=== PATIENT | male | born 1935 | race Caucasian/White ===

== ENCOUNTER 2017-07-19 07:58 | Inpatient (IN) | payer OTHER ==
[~2017-07-19] VITALS: Ht 185.4 cm; Wt 61.7 kg
[2017-07-19 07:59] VITALS: BP 83/49
[2017-07-19] MEDS ORDERED: METFORMIN500 MG PO (08:20)
[2017-07-19] MEDS ORDERED: LISINOPRIL5 MG PO (08:20)
[2017-07-19 08:25] LABS: BASO % 0.5 % (0.0-1.0); EOS # 0.1 10*3/uL (0.0-0.4); EOS % 1.4 % (1.0-4.0); HEMATOCRIT 38.3 % (42.0-52.0); HEMOGLOBIN 12.3 g/dl (14.0-18.0); LYMPH % 22.8 % (27.0-41.0); MEAN CELL VOLUME 101.6 fl (80.0-94.0); MEAN CORPUSCULAR HGB 32.6 pg (27.0-31.0); MEAN CORPUSCULAR HGB CONC 32.1 g/dl (33.0-37.0); MEAN PLATELET VOLUME 10.3 fl (9.6-12.3); MONO # 0.5 10*3/uL (0.1-1.0); MONO % 6.2 % (3.0-9.0); NEUT % 68.8 % (47.0-73.0); PLATELET COUNT AUTOMATED 424 10*3/uL (130-400); RED BLOOD COUNT 3.77 10*6/uL (4.50-5.90); RED CELL DISTRI WIDTH 12.4 % (0-14.5); WHITE BLOOD COUNT 8.7 10*3/uL (4.8-10.8)
[2017-07-19 08:44] LABS: ALBUMIN 3.1 gm/dl (3.1-4.5); ALKALINE PHOSPHATASE 55 U/L (45-117); BUN 30 mg/dl (7-24); CHLORIDE 99 mmol/L (98-107); CREATININE 1.43 mg/dL (0.70-1.30); POTASSIUM 4.6 mmol/L (3.5-5.1); SGOT/AST 10 IU/L (3-35); SGPT/ALT 12 U/L (12-78); SODIUM 138 mmol/L (136-145); TOTAL PROTEIN 7.9 gm/dL (6.4-8.2)
[2017-07-19 08:48] VITALS: BP 104/67
[2017-07-19 08:55] LABS: TROPONIN I < 0.015 ng/ml (<0.045)
[2017-07-19 10:45] VITALS: BP 105/81
[2017-07-19 12:00] VITALS: BP 125/58
[2017-07-19 16:00] VITALS: BP 130/85
[2017-07-19 20:00] VITALS: BP 98/74
[2017-07-20] VITALS: BP 98/74
[2017-07-20 07:10] LABS: BASO % 0.4 % (0.0-1.0); EOS # 0.2 10*3/uL (0.0-0.4); EOS % 2.3 % (1.0-4.0); HEMATOCRIT 40.4 % (42.0-52.0); HEMOGLOBIN 12.8 g/dl (14.0-18.0); LYMPH # 1.6 10*3/uL (1.3-4.4); LYMPH % 23.4 % (27.0-41.0); MEAN CELL VOLUME 100.7 fl (80.0-94.0); MEAN CORPUSCULAR HGB 31.9 pg (27.0-31.0); MEAN CORPUSCULAR HGB CONC 31.7 g/dl (33.0-37.0); MEAN PLATELET VOLUME 10.4 fl (9.6-12.3); MONO # 0.4 10*3/uL (0.1-1.0); MONO % 6.2 % (3.0-9.0); NEUT # 4.7 10*3/uL (2.3-7.9); NEUT % 67.3 % (47.0-73.0); PLATELET COUNT AUTOMATED 386 10*3/uL (130-400); RED BLOOD COUNT 4.01 10*6/uL (4.50-5.90); RED CELL DISTRI WIDTH 12.3 % (0-14.5)
[2017-07-20 07:26] LABS: ACT PARTIAL THROMBO TIME 28.7 SECONDS (20.8-31.5)
[2017-07-20 07:42] LABS: ALBUMIN 3.1 gm/dl (3.1-4.5); BUN 27 mg/dl (7-24); CHLORIDE 99 mmol/L (98-107); SODIUM 137 mmol/L (136-145)
[2017-07-20 07:50] LABS: ALKALINE PHOSPHATASE 59 U/L (45-117); CHOLESTEROL 164 mg/dL (<200); CREATININE 0.98 mg/dL (0.70-1.30); FREE T4 1.42 ng/dl (0.76-1.46); HDL CHOLESTEROL 43 mg/dl (40-60); LDL CHOLESTEROL 94 mg/dL (9-159); PHOSPHOROUS 2.4 mg/dL (2.5-4.9); SGOT/AST 13 IU/L (3-35); SGPT/ALT 13 U/L (12-78); TOTAL PROTEIN 8.2 gm/dL (6.4-8.2); TRIGLYCERIDES 137 mg/dl (<150); VLDL CHOLESTEROL 27 mg/dL (6-40)
[2017-07-20 08:00] VITALS: BP 160/80
[2017-07-20 08:03] LABS: VITAMIN D, 25-HYDROXY 25.4 ng/mL (30-100)
[2017-07-20 08:19] LABS: POTASSIUM 3.5 mmol/L (3.5-5.1)
[2017-07-20 12:00] VITALS: BP 117/88
== END 2017-07-20 15:07 | disposition home or self-care (01) | DRG 312 ==
LOC: ED 07:58 → EDHOLD 09:30 → 5E 09:30
PROVIDERS: Emergency Medicine; Family Medicine
DX: I95.1 Orthostatic hypotension (principal); E11.65 Type 2 diabetes mellitus with hyperglycemia; D53.9 Nutritional anemia, unspecified; I47.1 Supraventricular tachycardia; Z68.1 Body mass index [BMI] 19.9 or less, adult; D47.3 Essential (hemorrhagic) thrombocythemia; J44.9 Chronic obstructive pulmonary disease, unspecified; D72.810 Lymphocytopenia; I10 Essential (primary) hypertension; R06.82 Tachypnea, not elsewhere classified; R63.6 Underweight; E78.5 Hyperlipidemia, unspecified; Z91.14 Patient's other noncompliance with medication regimen; Z79.899 Other long term (current) drug therapy; Z87.891 Personal history of nicotine dependence; Z82.49 Family history of ischemic heart disease and other diseases of the circulatory system; Z80.8 Family history of malignant neoplasm of other organs or systems

== ENCOUNTER 2017-08-02 11:46 | Inpatient (IN) | payer OTHER ==
[~2017-08-02] VITALS: Ht 185.4 cm; Wt 64.9 kg
[2017-08-02 11:46] VITALS: BP 112/57
[~2017-08-02 11:46] MED LIST: LISINOPRIL5 MG PO; METFORMIN500 MG PO
[2017-08-02] MEDS ORDERED: METFORMIN HCL500 MG PO (11:53)
[2017-08-02 13:08] LABS: HEMATOCRIT 36.3 % (42.0-52.0); HEMOGLOBIN 11.5 g/dl (14.0-18.0); MEAN CORPUSCULAR HGB 32.3 pg (27.0-31.0); MEAN CORPUSCULAR HGB CONC 31.7 g/dl (33.0-37.0); MEAN PLATELET VOLUME 10.7 fl (9.6-12.3); PLATELET COUNT AUTOMATED 263 10*3/uL (130-400); RED BLOOD COUNT 3.56 10*6/uL (4.50-5.90); RED CELL DISTRI WIDTH 13.3 % (0-14.5); WHITE BLOOD COUNT 12.9 10*3/uL (4.8-10.8)
[2017-08-02 13:20] LABS: ACT PARTIAL THROMBO TIME 27.2 SECONDS (20.8-31.5)
[2017-08-02 13:20] LABS: BILIRUBIN 1+ (NEGATIVE); BLOOD NEGATIVE (NEGATIVE); CLARITY SL CLOUDY (CLEAR); COLOR YELLOW (YELLOW); GLUCOSE TRACE (NEGATIVE); KETONE 1+ (NEGATIVE); LEUKO ESTERASE NEGATIVE (NEGATIVE); NITRITE NEGATIVE (NEGATIVE); PH 6.5 (5.0-9.0)
[2017-08-02 13:25] LABS: ALBUMIN 3.4 gm/dl (3.1-4.5); BUN 28 mg/dl (7-24); CHLORIDE 101 mmol/L (98-107); CREATININE 1.11 mg/dL (0.70-1.30); LIPASE 85 U/L (73-393); POTASSIUM 4.2 mmol/L (3.5-5.1); SGOT/AST 10 IU/L (3-35); SGPT/ALT 13 U/L (12-78); SODIUM 137 mmol/L (136-145)
[2017-08-02 13:26] LABS: ALKALINE PHOSPHATASE 52 U/L (45-117); TOTAL PROTEIN 7.6 gm/dL (6.4-8.2)
[2017-08-02 13:28] LABS: TROPONIN I < 0.015 ng/ml (<0.045)
[2017-08-02 13:38] LABS: PLATELET SUFFICIENCY NORMAL (NORMAL); TOTAL CELLS COUNTED 100 #CELLS
[2017-08-02 13:40] LABS: BACTERIA TRACE; EPITHELIAL CELLS 0-2; MUCOUS 1+; RBC 0-2 rbc/hpf (0-2); WBC 0-2 wbc/hpf (0-5)
[2017-08-02 14:06] VITALS: BP 155/72
[2017-08-02 20:00] VITALS: BP 135/72
[2017-08-03] VITALS: BP 125/74
[2017-08-03 06:41] LABS: BASO % 0.3 % (0.0-1.0); EOS % 0.2 % (1.0-4.0); HEMATOCRIT 35.3 % (42.0-52.0); HEMOGLOBIN 11.1 g/dl (14.0-18.0); LYMPH # 0.9 10*3/uL (1.3-4.4); MEAN CORPUSCULAR HGB 32.1 pg (27.0-31.0); MEAN CORPUSCULAR HGB CONC 31.4 g/dl (33.0-37.0); MEAN PLATELET VOLUME 10.7 fl (9.6-12.3); MONO # 0.5 10*3/uL (0.1-1.0); MONO % 5.6 % (3.0-9.0); NEUT % 84.6 % (47.0-73.0); PLATELET COUNT AUTOMATED 220 10*3/uL (130-400); RED BLOOD COUNT 3.46 10*6/uL (4.50-5.90); RED CELL DISTRI WIDTH 13.4 % (0-14.5); WHITE BLOOD COUNT 9.5 10*3/uL (4.8-10.8)
[2017-08-03 06:46] LABS: ACT PARTIAL THROMBO TIME 33.6 SECONDS (20.8-31.5); INTERNATIONAL NORM RATIO 1.1 (2.0-3.5)
[2017-08-03 06:56] LABS: ALBUMIN 3.1 gm/dl (3.1-4.5); ALKALINE PHOSPHATASE 50 U/L (45-117); BUN 20 mg/dl (7-24); CHLORIDE 103 mmol/L (98-107); CREATININE 0.99 mg/dL (0.70-1.30); PHOSPHOROUS 2.4 mg/dL (2.5-4.9); POTASSIUM 3.9 mmol/L (3.5-5.1); SGOT/AST 10 IU/L (3-35); SGPT/ALT 11 U/L (12-78); SODIUM 139 mmol/L (136-145); TOTAL PROTEIN 7.3 gm/dL (6.4-8.2)
[2017-08-03 08:10] VITALS: BP 180/78
[2017-08-03] MEDS ORDERED: TOPROL XL50 M1 PO (08:13)
[2017-08-03 11:32] VITALS: BP 160/72
[2017-08-03 16:00] VITALS: BP 151/61
[2017-08-03 20:00] VITALS: BP 133/68
[2017-08-04] VITALS: BP 155/63
[2017-08-04 06:30] LABS: BASO % 0.3 % (0.0-1.0); EOS % 0.5 % (1.0-4.0); HEMATOCRIT 30.4 % (42.0-52.0); HEMOGLOBIN 9.6 g/dl (14.0-18.0); LYMPH # 0.9 10*3/uL (1.3-4.4); LYMPH % 11.9 % (27.0-41.0); MEAN CELL VOLUME 102.4 fl (80.0-94.0); MEAN CORPUSCULAR HGB 32.3 pg (27.0-31.0); MEAN CORPUSCULAR HGB CONC 31.6 g/dl (33.0-37.0); MEAN PLATELET VOLUME 11.2 fl (9.6-12.3); MONO # 0.7 10*3/uL (0.1-1.0); MONO % 9.6 % (3.0-9.0); NEUT # 5.7 10*3/uL (2.3-7.9); NEUT % 77.4 % (47.0-73.0); PLATELET COUNT AUTOMATED 218 10*3/uL (130-400); RED BLOOD COUNT 2.97 10*6/uL (4.50-5.90); RED CELL DISTRI WIDTH 13.6 % (0-14.5); WHITE BLOOD COUNT 7.4 10*3/uL (4.8-10.8)
[2017-08-04 08:00] VITALS: BP 138/56
[2017-08-04 12:00] VITALS: BP 142/77
[2017-08-04 16:00] VITALS: BP 173/67
[2017-08-04 20:00] VITALS: BP 159/63
[2017-08-05] VITALS: BP 125/53; BP 174/64
[2017-08-05 07:58] LABS: BASO % 0.5 % (0.0-1.0); EOS # 0.2 10*3/uL (0.0-0.4); EOS % 3.4 % (1.0-4.0); HEMOGLOBIN 9.3 g/dl (14.0-18.0); LYMPH # 1.1 10*3/uL (1.3-4.4); LYMPH % 18.6 % (27.0-41.0); MEAN CORPUSCULAR HGB 32.4 pg (27.0-31.0); MEAN CORPUSCULAR HGB CONC 32.1 g/dl (33.0-37.0); MONO # 0.5 10*3/uL (0.1-1.0); MONO % 7.8 % (3.0-9.0); NEUT # 4.1 10*3/uL (2.3-7.9); NEUT % 69.4 % (47.0-73.0); PLATELET COUNT AUTOMATED 205 10*3/uL (130-400); RED BLOOD COUNT 2.87 10*6/uL (4.50-5.90); RED CELL DISTRI WIDTH 13.6 % (0-14.5); WHITE BLOOD COUNT 5.9 10*3/uL (4.8-10.8)
[2017-08-05 08:00] VITALS: BP 176/79
[2017-08-05 08:10] LABS: BUN 13 mg/dl (7-24); CHLORIDE 106 mmol/L (98-107); CREATININE 1.02 mg/dL (0.70-1.30); PHOSPHOROUS 2.4 mg/dL (2.5-4.9); POTASSIUM 3.5 mmol/L (3.5-5.1); SODIUM 141 mmol/L (136-145)
[2017-08-05] MEDS ORDERED: LEVAQUIN500 M2 PO (11:11)
[2017-08-05] MEDS ORDERED: TOPROL XL50 M1 PO (11:14)
[2017-08-05] MEDS ORDERED: MUCINEX ER600 MG PO (11:14)
== END 2017-08-05 12:17 | disposition home or self-care (01) | DRG 871 ==
LOC: ED 11:46 → 4E 14:15 → EDHOLD 14:15 → 4E 14:29
PROVIDERS: Emergency Medicine; Family Medicine; Internal Medicine Nephrology
DX: A41.9 Sepsis, unspecified organism (principal); G93.41 Metabolic encephalopathy; J90 Pleural effusion, not elsewhere classified; E44.0 Moderate protein-calorie malnutrition; J18.1 Lobar pneumonia, unspecified organism; E11.65 Type 2 diabetes mellitus with hyperglycemia; J44.0 Chronic obstructive pulmonary disease with (acute) lower respiratory infection; I47.1 Supraventricular tachycardia; R65.20 Severe sepsis without septic shock; E83.39 Other disorders of phosphorus metabolism; D53.9 Nutritional anemia, unspecified; E83.41 Hypermagnesemia; B35.1 Tinea unguium; I10 Essential (primary) hypertension; Y95 Nosocomial condition; Z79.4 Long term (current) use of insulin; Z79.84 Long term (current) use of oral hypoglycemic drugs; Z68.21 Body mass index [BMI] 21.0-21.9, adult; Z79.899 Other long term (current) drug therapy; Z82.49 Family history of ischemic heart disease and other diseases of the circulatory system

== ENCOUNTER → 2017-09-26 | Day surgery (SDC) | payer OTHER ==
[~2017-09-26] VITALS: Ht 185.4 cm; Wt 61.2 kg
[~2017-09-26] MED LIST changes: +LEVAQUIN500 M2 PO; +METFORMIN HCL500 MG PO; +METFORMIN HYDR500 MG PO; +MUCINEX ER600 MG PO; +OMEPRAZOLE20 M2 PO; +TOPROL XL50 M1 PO; +TRAZODONE50 MG PO
--- NOTE | ~2017-09-26 | O ---
[place], [place] OPERATIVE NOTE NAME: ALL ALMARAZ V UNIT #: [id number] ROOM: DOCTOR: SANTA BRISCOE MD BIRTHDATE: [birth year] DOS: 09/26/2017 GASTROENDOSCOPIC REPORT INDICATIONS: An 82-year-old patient who presented with chief complaint of solid food dysphagia, also difficulty swallowing pills. Weight loss has resolved. ALLERGIES: No known medication. FAMILY HISTORY: Throat CA in multiple members. PAST SURGICAL HISTORY: Unremarkable. PAST MEDICAL HISTORY: Diabetes, hypertension. SOCIAL HISTORY: Smoker, nonalcohol consumer. PROCEDURE: Today's procedure part of investigation is panendoscopy plus biopsy plus esophageal balloon dilation to size 18. PREMEDICATION: Propofol. SCOPE: Olympus forward-viewing gastroscope Q10 video. REPORT: After putting the patient in left lateral position and application of lubricant to the scope, the scope was introduced. Thereafter, under direct visualization, advanced through the length of esophagus without difficulty into gastric pouch. Duodenal bulb, second and third part within normal limit. Gastritis was noticed. Antral biopsy was obtained. Air was suctioned out back to the mid gastric pouch. The balloon size 18-20 was used and up to an effective size of 18 at the cervical esophagus was utilized and dilation of esophagus was undertaken with the highest resistance in upper esophagus. Air was suctioned out. The patient was extubated and tolerated the procedure well. IMPRESSION: Gastritis, dysphagia, status post esophageal benign stricture balloon dilation to size 18. PLAN AND DISCUSSION: We are going to start him on omeprazole 20 mg daily and antireflux measures. FOLLOWUP: Routinely with you in office, p.r.n. visit with us in [facility]. Thank you again for your kind referral. [place], [place] OPERATIVE NOTE NAME: ALL ALMARAZ V UNIT #: [id number] ROOM: DOCTOR: SANTA BRISCOE MD BIRTHDATE: [birth year] SANTA BRISCOE MD CM:OPRECORD:OPERATIVE NOTE SANTA BRISCOE MD 09/26/17 0838 interface
[2017-09-26 07:20] VITALS: BP 152/77
[2017-09-26 08:24] VITALS: BP 119/62
[2017-09-26 08:39] VITALS: BP 171/70
[2017-09-26 08:54] VITALS: BP 170/85
== END | disposition home or self-care (01) ==
LOC: SDC 09-20 09:30
DX: K29.50 Unspecified chronic gastritis without bleeding (principal); R13.10 Dysphagia, unspecified; I10 Essential (primary) hypertension; E11.9 Type 2 diabetes mellitus without complications; J44.9 Chronic obstructive pulmonary disease, unspecified; Z87.891 Personal history of nicotine dependence; Z82.49 Family history of ischemic heart disease and other diseases of the circulatory system

== ENCOUNTER → 2018-02-06 | Outpatient (CLI) | payer OTHER ==
[~2018-02-06] MED LIST changes: +CYPROHEPTADINE H4 M1 PO; +HOSPBED DEVI; +RIVASTIGMINE1 EACH T; +VIBRAMYCIN100 MG PO
--- NOTE | ~2018-02-06 | SLPIE ---
[place], [place] CABLE TV INSTALLER INITIAL EVALUATION NAME: ALL ALMARAZ V UNIT #: [id number] ROOM: DOCTOR: ESTER KASPER Speech Language Pathology Initial Evaluation Page 1 1 of Patient Name: ALL ALMARAZ Date: 02/06/2018 12:22 PM : 1935 SOC Date: 02/06/2018 [facility] Provider #: [id number] Treating Clinician: ANTONINO Mcmullen-CABLE TV INSTALLER Referring Physician: ESTER KASPER Patient Information Address: [address] [place] [address] Physician: ESTER KASPER Physician #: City, [facility], Zip: [place] [address] Occupation: Unknown # of Approved Visits: 0 Gender: Male [employer] Specialist: DAVID SKELTON Medicare #: [id number] Rehabilitation Information / History Onset Date Code Description Primary Diagnosis: 02/06/2018 A0000 NO DIAGNOSIS SENT TO THE [facility] Subjective Comments: Initial evaluation created to initiate the electronic medical record. Please see [facility] for details. Rehabilitation Information / History Clinical Findings Functional Goals Functional Limitation Reporting Swallowing G8996 - Swallowing functional limitation, current status at therapy episode outset and at reporting intervals Current Status: CJ - At least 20 percent but less than 40 percent impaired, limited or restricted G8997 - Swallowing functional limitation, projected goal status, at therapy episode outset, at reporting intervals, and at discharge or to end reporting Goal Status: CJ - At least 20 percent but less than 40 percent impaired, limited or restricted G8998 - Swallowing functional limitation, discharge status, at discharge from therapy or to end reporting Discharge Status: CJ - At least 20 percent but less than 40 percent impaired, limited or restricted 02/06/2018 12:23:37 PM ANTONINO Mcmullen-CABLE TV INSTALLER Date/Time [place], [place] CABLE TV INSTALLER INITIAL EVALUATION NAME: ALL ALMARAZ V UNIT #: [id number] ROOM: DOCTOR: ESTER KASPER [facility] License #: [id number] CM:RUBI 27 [facility]
--- NOTE | ~2018-02-06 | PROC NOTE ---
[place], [place] PROCEDURE NOTE [id number] UNIT #: [id number] ROOM: DOCTOR: RAMONA ESPINOZA BIRTHDATE: [birth year] DOS: 02/06/2018 MODIFIED BARIUM SWALLOW ORDERING PHYSICIAN: Dr. Florian. RADIOLOGIST: Dr. Mendoza. BACKGROUND INFORMATION: The patient is an 82-year-old male who was seen for a modified barium swallow. This test was ordered due to choking with meals. Medical history is significant for Alzheimer's disease, DM and HTN. For the assessment, the patient was alert and able to follow commands, though he was confused. The patient currently receives a soft diet and thin liquids. Oral peripheral examination revealed edentulous status. Lingual, labial and buccal skills were within normal limits in terms of strength, range of motion and coordination. The patient was able to volitionally cough and swallow. Respiratory status was within normal limits at this time. METHODS AND MATERIALS USED FOR THE EXAM: The patient was positioned in the lateral plane and the exam was viewed under fluoroscopy. The patient was presented with a variety of consistencies to assess swallowing skills including applesauce mixed with barium presented in half teaspoon amounts, barium-coated cookie given in bite size piece and thin liquid barium, which the patient took independently by cup. ORAL PHASE: The patient achieved adequate labial seal around cup and spoon with no anterior loss. Bolus formation was adequate. Mastication of solid consistency was slow due to lack of dentition. Oral transit was also slow, most likely due to cognitive status. At times, the patient would hold material in his mouth and look around and needed cues and reminders to swallow what was in his mouth. Tongue to palate contact was within normal limits. Tongue to posterior pharyngeal wall contact was moderately impaired with puree and solid. Velar functioning was within normal limits with no nasal regurgitation. PHARYNGEAL PHASE: The pharyngeal swallow occurred within a timely manner. During the swallow, laryngeal elevation and epiglottic function were adequate. No penetration or aspiration occurred with any consistency. Pooling in the vallecula did occur with puree and solid consistency. The patient appeared aware of this and did independently re-swallow which cleared some, but not all of the residue. Other strategies were attempted to clear the residue such as a hard swallow, chin tuck and liquid wash. Liquid wash was helpful, but no strategy was completely effective in clearing the entire amount of residue. ESOPHAGEAL PHASE: This phase of the swallow was not formally assessed during this exam. IMPRESSIONS AND RECOMMENDATIONS: Based upon assessment results, this 82-year-old patient presents with a moderate oropharyngeal dysphagia. Mastication was impaired due to lack of dentition. Oral transit was slow and tongue to posterior pharyngeal wall contact was moderately reduced with puree [place], [place] PROCEDURE NOTE NAME: ALL ALMARAZ V UNIT #: [id number] ROOM: DOCTOR: RAMONA ESPINOZA BIRTHDATE: [birth year] and solid consistencies with pooling occurring in the vallecula. Strategies were attempted to clear the residue. These strategies were helpful, but did not completely clear it. No penetration or aspiration occurred with any consistency. Recommend the patient receive very soft to pureed food items and thin liquids. Recommend use of strategies such as small bites and sips, double swallows and alternating liquid and solid. Results and recommendations were shared with the patient and his caregiver and they verbalized understanding. Thank you very much for this referral. Should you have any questions regarding this patient, please contact the speech pathologist at [phone]. RAMONA ESPINOZA CM:PROCNOTE:PROCEDURE NOTE [id number] JANY ESPINOZA
--- NOTE | ~2018-02-06 | SLPPN ---
[place], [place] WIRE BENDER HAND PROGRESS NOTE NAME: ALL ALMARAZ V UNIT #: [id number] ROOM: DOCTOR: ESTER KASPER Speech Language Pathology Treatment Note Page 1 1 of Patient Name: ALL ALMARAZ Date: 02/06/2018 12:28 PM : 1935 SOC Date: 02/06/2018 [facility]: [facility] Provider #: [id number] Treating Clinician: ANTONINO Mcmullen-WIRE BENDER HAND Referring Physician: ESTER KASPER Onset Date Description Code Primary Diagnosis: 02/06/2018 A0000 NO DIAGNOSIS SENT TO THE [facility] Time In: 11:30 AM Time Out: 12:30 PM W[employer] Interventions and CPT Codes Consisted of: CPT Code Modifiers Minutes Units MOTION FLUOROSCOPY/SWALLOW 66185 60 1 Total Minutes: 60 Total Timed Minutes: 0 Total Untimed Minutes: 60 Total Units: 1 Total Timed Units: 0 Total Untimed Units: 1 02/06/2018 12:29:44 PM ANTONINO Mcmullen-WIRE BENDER HAND Date/Time State License #: [id number] CM:SAVAGEPN [id number] 1233 [facility]
--- NOTE | ~2018-02-06 | SLPPOC ---
[place], [place] SAND SYSTEM OPERATOR PLAN OF CARE NAME: ALL ALMARAZ V UNIT #: [id number] ROOM: DOCTOR: ESTER KASPER Speech Language Pathology Plan of Care Page 1 1 (Initial Evaluation) of Patient Name: ALL ALMARAZ Date: 02/06/2018 12:22 PM : 1935 SOC Date: 02/06/2018 [facility]: [facility] Provider #: [id number] Treating Clinician: ANTONINO Mcmullen-SAND SYSTEM OPERATOR Referring Physician: ESTER KASPER Medicare #: [id number] Visits From SOC: Onset Date Description Code Primary Diagnosis: 02/06/2018 A0000 NO DIAGNOSIS SENT TO THE [facility] Subjective Comments: Initial evaluation created to initiate the electronic medical record. Please see [employer] for details. Initial Level Goals Functional Limitation Reporting Swallowing G8996 - Swallowing functional limitation, current status at therapy episode outset and at reporting intervals Current Status: CJ - At least 20 percent but less than 40 percent impaired, limited or restricted G8997 - Swallowing functional limitation, projected goal status, at therapy episode outset, at reporting intervals, and at discharge or to end reporting Goal Status: CJ - At least 20 percent but less than 40 percent impaired, limited or restricted G8998 - Swallowing functional limitation, discharge status, at discharge from therapy or to end reporting Discharge Status: CJ - At least 20 percent but less than 40 percent impaired, limited or restricted 02/06/2018 12:23:37 PM ESTER KASPER Date/Time ANTONINO Mcmullen-SAVAGE Date I certify the need for these services furnished under this plan of treatment while under my care. State License #: [id number] CM:SLPPOC [id number] 1228 [facility]
== END | disposition home or self-care (01) ==
LOC: RAD/SH 11:27
DX: R13.14 Dysphagia, pharyngoesophageal phase (principal)

== ENCOUNTER → 2018-02-21 | Outpatient (CLI) | payer OTHER | END | disposition home or self-care (01) | LOC: RESCLI 08:19 | DX: I10 Essential (primary) hypertension (principal); G30.9 Alzheimer's disease, unspecified; F02.81 Dementia in other diseases classified elsewhere, unspecified severity, with behavioral disturbance; E11.22 Type 2 diabetes mellitus with diabetic chronic kidney disease; R13.12 Dysphagia, oropharyngeal phase; D53.9 Nutritional anemia, unspecified; Z79.899 Other long term (current) drug therapy ==